=== PATIENT | male | born 1980 ===

== ENCOUNTER 2017-07-07 15:21 | Emergency (ER) | payer OTHER ==
[2017-07-07 15:30] VITALS: BP 142/82; RESP 18; TEMP 98; O2SAT 98
--- NOTE | 2017-07-07 16:11 | RAD ---
HISTORY: chest pain COMPARISON: No prior. TECHNIQUE: Chest PA and lateral FINDINGS: LUNGS: No active pulmonary disease. PLEURA: No significant pleural effusion identified. No pneumothorax apparent. CARDIOVASCULAR: Normal. OSSEOUS STRUCTURES: No significant abnormalities. VISUALIZED UPPER ABDOMEN: Normal. OTHER FINDINGS: None. IMPRESSION: No active disease.
--- NOTE | 2017-07-07 16:15 | ED PDOC ---
HPI: Chest Pain Time Seen by Provider: 07/07/17 15:34 Chief Complaint (Nursing): Chest Pain Chief Complaint (Provider): Chest Pain History Per: Patient History/Exam Limitations: no limitations Onset/Duration Of Symptoms: Days (x 2 months), Intermittent Episodes Current Symptoms Are (Timing): Still Present Associated Symptoms: denies: Nausea Exacerbating Factors: None Additional Complaint(s): 37 y/o male presents to the ED with left sided chest pain that radiates to the shoulder, arm, and back, which has been intermittent for the last two months. Todays episode started while he was at [employer]. 3 years ago, he had similar pain and started on blood pressure medication, but doesnt know the name of the medication, and stopped taking it once he ran out. He is now concerned because the pain has started again. Patient denies shortness of breath, leg swelling, nausea, or any exacerbating factors. He has been taking baby aspirin every day for 2 weeks. Last month, he was seen at [facility] for the same issue, and told to follow up with his PMD, but states that he hasnt because of work. PMD: None Past Medical History Reviewed: Historical Data, Nursing Documentation, Vital Signs Vital Signs: Last Vital Signs Temp 98 F 07/07/17 15:24 Pulse 76 07/07/17 19:37 Resp 18 07/07/17 15:24 BP 142/82 07/07/17 15:24 Pulse Ox 98 07/07/17 19:37 - Medical History PMH: Anxiety, HTN - Surgical History Surgical History: No Surg Hx - Family History Family History: States: Unknown Family Hx, Hypertension - Social History Ex-Smoker (has not smoked in the last 12 months): No Alcohol: Social Drugs: Denies - Immunization History Hx Tetanus Toxoid Vaccination: No Hx Influenza Vaccination: No Hx Pneumococcal Vaccination: No - Home Medications Home Medications: Ambulatory Orders Medication Instructions Recorded oxyCODONE/Acetaminophen [Percocet 1 ea PO TID PRN #12 tab 05/14/17 5/325 mg Tab] Ibuprofen [Motrin Tab] 600 mg PO Q8 PRN #60 tab 07/07/17 - Allergies Allergies/Adverse Reactions: Allergies Allergy/AdvReac Type Severity Reaction Status Date / Time No Known Allergies Allergy Verified 06/15/17 00:20 Review of Systems ROS Statement: Except As Marked, All Systems Reviewed And Found Negative (and as per HPI) Cardiovascular: Positive for: Chest Pain Respiratory: Negative for: Shortness of Breath Gastrointestinal: Negative for: Nausea Musculoskeletal: Positive for: Shoulder Pain, Arm Pain, Back Pain. Negative for : Other (leg swelling) Physical Exam - Reviewed Nursing Documentation Reviewed: Yes Vital Signs Reviewed: Yes - Physical Exam Appears: Positive for: Well, No Acute Distress Head Exam: Positive for: ATRAUMATIC, NORMOCEPHALIC Skin: Positive for: Warm, Dry Eye Exam: Positive for: EOMI, PERRL ENT: Negative for: Pharyngeal Erythema, Tonsillar Exudate Neck: Positive for: Painless ROM, Supple Cardiovascular/Chest: Positive for: Regular Rate, Rhythm, Chest Non Tender. Negative for: Murmur Respiratory: Positive for: Normal Breath Sounds. Negative for: Wheezing, Respiratory Distress Gastrointestinal/Abdominal: Positive for: Soft. Negative for: Tenderness Back: Positive for: Normal Inspection. Negative for: Decreased ROM Extremity: Positive for: Normal ROM. Negative for: Pedal Edema, Deformity Lymphatic: Negative for: Adenopathy Neurologic/Psych: Positive for: Alert. Negative for: Motor/Sensory Deficits - Laboratory Results Result Diagrams: 07/07/17 16:34 07/07/17 16:34 - ECG ECG: Positive for: Interpreted By Me, Viewed By Me ECG Rhythm: Positive for: Normal QRS, Normal ST Segment, Sinus Rhythm Rate: 76 (bpm) O2 Sat by Pulse Oximetry: 98 (RA) Medical Decision Making Medical Decision Making: Time: 15:41 Initial Impression: Chest pain: ddx include but not limited to angina, costochondritis, anxiety, hypertension Initial Plan: --EKG --CMP --Magnesium --Phosphorus --TSH --Troponin --CBC --Ibuprofen --Normal IV --Chest XR Time: 16:09 CHEST XR FINDINGS: LUNGS: No active pulmonary disease. PLEURA: No significant pleural effusion identified. No pneumothorax apparent. CARDIOVASCULAR: Normal. OSSEOUS STRUCTURES: No significant abnormalities. VISUALIZED UPPER ABDOMEN: Normal. OTHER FINDINGS: None. IMPRESSION: No active disease. EXAM: US Abdomen Limited, Right Upper Quadrant CLINICAL HISTORY: 37 years old, male; Pain; Abdominal pain; Epigastric; Additional info: Elevated bilirubin and low platelet TECHNIQUE: Real-time ultrasound of the right upper quadrant with image documentation. COMPARISON: No relevant prior studies available. FINDINGS: Liver: Unremarkable. No mass. No intrahepatic bile duct dilation. Gallbladder: Unremarkable. No gallstones. Negative sonographic Martinez sign. Common bile duct: Unremarkable as visualized. No stones. No dilation. Pancreas: The pancreas is partially obscured by overlying bowel gas. Right kidney: Unremarkable. No stones. No solid mass. No hydronephrosis. IMPRESSION: No acute findings. Thank you for allowing us to participate in the care of your patient. Dictated and Authenticated by: Naif Parker MD 07/07/2017 7:20 PM Eastern Time ([place] & [place]) Scribe Attestation: Documented by Leon Mckeon, acting as a scribe for Katherine Hilario MD Provider Scribe Attestation: All medical record entries made by the Scribe were at my direction and personally dictated by me. I have reviewed the chart and agree that the record accurately reflects my personal performance of the history, physical exam, medical decision making, and the department course for this patient. I have also personally directed, reviewed, and agree with the discharge instructions and disposition. Disposition - Clinical Impression Clinical Impression: Chest pain Counseled Patient/Family Regarding: Studies Performed, Diagnosis, Need For Followup, Rx Given - Disposition Referrals: Corey Grijalva [Outside] Disposition: Routine/Home Disposition Time: 19:35 Condition: GOOD Prescriptions: Ibuprofen [Motrin Tab] 600 mg PO Q8 PRN #60 tab PRN Reason: Pain, Moderate (4-7) Instructions: Chest Pain (ED) Forms: [facility] (Grenadian) Print Language: AMHARIC
[2017-07-07 16:19] VITALS: PULSE 76
[2017-07-07 16:47] LABS: ALB/GLOB RATIO 1.4 (1.0-2.1); ALKALINE PHOSPHATASE 63 U/L (38-126); ALT/SGPT 33 U/L (21-72); AST/SGOT 19 U/L (17-59); BASO % 0.6 % (0.0-2.0); BILIRUBIN,TOTAL 2.2 mg/dl (0.2-1.3); BLOOD UREA NITROGEN 11 mg/dl (9-20); CALCIUM 9.4 mg/dL (8.4-10.2); CARBON DIOXIDE 22 mmol/L (22-30); CHLORIDE 108 mmol/L (98-107); EOS # 0.1 K/uL (0.0-0.7); EOS % 1.1 % (0.0-4.0); GFR AFRICAN-AMERICAN > 60; GLUCOSE,RANDOM 103 mg/dL (75-110); HEMATOCRIT 43.2 % (35.0-51.0); LYMPH # 1.3 K/uL (1.0-4.3); LYMPH % 17.7 % (20.0-40.0); MEAN CELL VOLUME 86.1 fl (80.0-94.0); MEAN CORPUSCULAR HEMOGLOBIN 29.3 pg (27.0-31.0); MEAN PLATELET VOLUME 10.5 fl (7.2-11.7); MONO # 0.4 K/uL (0.0-0.8); MONO % 4.9 % (0.0-10.0); NEUT # 5.7 K/uL (1.8-7.0); NEUT % 75.7 % (50.0-75.0); NRBC % 0.2 % (0.0-0.0); PHOSPHOROUS 3.7 mg/dl (2.5-4.5); POTASSIUM 3.9 MMOL/L (3.6-5.0); RED CELL DISTRIBUTION WIDTH 12.7 % (11.5-14.5); SODIUM 146 mmol/l (132-148); TOTAL PROTEIN 7.4 G/DL (6.3-8.2); WHITE BLOOD COUNT 7.5 K/uL (4.8-10.8)
[2017-07-07 17:17] LABS: THYROID STIMULATING HORMONE 1.04 mIU/ML (0.46-4.68)
--- NOTE | 2017-07-08 10:39 | US ---
HISTORY: elevated bilirubin and low platelet COMPARISON: None. TECHNIQUE: Sonographic evaluation of the right upper quadrant of the abdomen. FINDINGS: LIVER: Measures 16.3 cm in length. Normal echogenicity of the liver parenchyma. No mass. No intrahepatic bile duct dilatation. GALLBLADDER: The gallbladder is well distended without gallstones, wall thickening or pericholecystic fluid. COMMON BILE DUCT: Measures 4.4 mm. No stones. No dilatation. PANCREAS: Unremarkable as visualized. No mass. No ductal dilatation. RIGHT KIDNEY: Measures 11.0 cm in length. Normal echogenicity. No calculus, mass, or hydronephrosis. AORTA: No aneurysmal dilatation. IVC: Unremarkable. OTHER FINDINGS: None . IMPRESSION: No cholelithiasis or biliary dilatation.
--- NOTE | 2017-07-09 09:43 | CARD ---
APPROVED REPORT EKG Measurement Heart [id number] <Conclusion> Normal sinus rhythm Normal ECG
== END 2017-07-07 19:50 | disposition home or self-care (01) ==
LOC: H.ER 15:21
DX: R07.89 Other chest pain (principal)